=== PATIENT | male | born 1945 | race Caucasian/White ===

== ENCOUNTER 2019-11-21 16:31 | Outpatient (CLI) | payer MEDICARE ==
--- NOTE | 2019-11-21 21:09 | Ultrasound Report ---
PROCEDURE: Carotid Doppler Complete INDICATIONS: TIA TECHNIQUE: Color and pulse Doppler interrogation was performed of both carotid systems, with image documentation and velocity measurements. COMPARISON: None. FINDINGS: Right side: Common carotid artery peak systolic velocity: 87 cm/sec. Internal carotid artery peak systolic velocity: 79 cm/sec. Internal carotid artery end diastolic velocity: 32 cm/sec. External carotid artery peak systolic velocity: 82 cm/sec. ICA/CCA peak systolic ratio: 0.82 . Huang scale imaging description: Mild calcified plaque is noted at the right carotid bulb. Percent internal carotid artery stenosis: Less than 50%. Vertebral artery: Flow direction is antegrade. Left side: Common carotid artery peak systolic velocity: 109 cm/sec. Internal carotid artery peak systolic velocity: 77 cm/sec. Internal carotid artery end diastolic velocity: 32 cm/sec. External carotid artery peak systolic velocity: 107 cm/sec. ICA/CCA peak systolic ratio: 0.70 . Huang scale imaging description: Mild calcified atherosclerotic plaque is seen in the carotid bulb. Percent internal carotid artery stenosis: Less than 50%. Vertebral artery: Flow direction is antegrade. IMPRESSION: Mild atherosclerotic plaque at the carotid bulbs bilaterally with less than 50% stenosis. The estimate of stenosis included in the report of the imaging study was calculated using the NASCET method Reviewed by: Gurjit Titus MD on 11/21/2019 9:08 PM PDT Approved by: Gurjit Titus MD on 11/21/2019 9:08 PM PDT Station ID: [id number]
== END 2019-11-21 16:32 | disposition home or self-care (01) ==
LOC: DI 16:31
PROVIDERS: ATTEND Internal Medicine
DX: G45.9 Transient cerebral ischemic attack, unspecified (principal)
CPT/HCPCS: 93880

== ENCOUNTER 2021-03-25 09:34 | Outpatient (CLI) | payer MEDICARE ==
--- NOTE | 2021-03-25 13:40 | Ultrasound Report ---
PROCEDURE: Retroperitoneal INDICATIONS: CKD TECHNIQUE: Real-time scanning was performed of the retroperitoneal organs, with image documentation. COMPARISON: None. FINDINGS: Kidneys: Kidneys are normal in size. Right kidney measures 11.1 cm long; left kidney measures 10.9 cm long. Right renal cortical thickness is 1.4 cm; left renal cortical thickness is 1.2 cm. No suleiman d masses, hydronephrosis, or nephrolithiasis. 1.1 x 1.0 x 0.9 cm right renal cyst. 2 left peripelvic cyst noted which measure 2.1 x 1.6 x 1.3 and 1.7 x 1.3 x 1.0 cm. Bladder: Pre-void bladder volume is 398 mL. Post-void residual is 46 mL. Pre-void images demonstra te no intraluminal masses or stones. On pre-void images, both the right and left ureteral jets are n oted with color Doppler interrogation. (Of note, ureteral jets may not be detectable in up to 25% of cases due to insufficient differences in specific gravity between ureteral and bladder urine). Miscellaneous: No free abdominal fluid. IMPRESSION: 1. Bilateral renal cysts. 2. No hydronephrosis. Reviewed by: Adela Santos MD, PhD on 03/25/2021 12:39 PM [facility] Approved by: Adela Santos MD, PhD on 03/25/2021 12:39 PM [facility] Station ID: [id number]
== END 2021-03-25 09:35 | disposition home or self-care (01) ==
LOC: DI 09:34
PROVIDERS: ATTEND Internal Medicine
DX: N18.9 Chronic kidney disease, unspecified (principal); N28.1 Cyst of kidney, acquired